=== PATIENT | female | born 1975 | race African-American/Black ===

== ENCOUNTER 2018-08-27 10:18 | Inpatient (IN) | payer OTHER ==
[~2018-08-27] VITALS: Ht 167.6 cm; Wt 103.0 kg
[~2018-08-27 10:18] MED LIST: ADVIL MIGRAI200 M1 PO; BIAXIN500 MG OR; LORTAB 10-325 M1 TAB PO; LORTAB 5 OR; LOSARTAN POT25 MG PO; MEDDOSEPAK OR; NAPROSYN500 MG OR; NAPROSYN500 MG PO; PENICILLN VK500 MG OR; ROBITUSSIN AC OR; ULTRAM50 MG OR; ZITHROMAX250 MG PO; ZYRTEC10 M1; ZYRTEC10 MG PO
--- NOTE | 2018-08-27 10:37 | NUR ---
PT TO ROOM FOR EXAM
[2018-08-27 10:57] LABS: HEMATOCRIT 41.5 % (37.0-47.0); HEMOGLOBIN 13.1 g/dl (12.0-16.0); IMMATURE GRANULOCYTES 0.5 % (0.0-5.0); MEAN CELL VOLUME 85.4 fL CALC (80.0-100.0); MEAN CORPUSCULAR HGB CONC 31.6 g/L CALC (32.0-36.0); NEUT# 10.15 thou/uL (2.00-7.15); RED BLOOD COUNT 4.86 mill/uL (4.20-5.60); RED CELL DISTRI WIDTH 14.9 % (11.5-15.5)
--- NOTE | 2018-08-27 11:00 | NUR ---
PT MEDICATED WITH TORADOL AND ZOFRAN ORDERED FOR 9/10 EPIGASTRIC PAIN. DENIES VOMITING OR DIARRHEA.
[2018-08-27 11:09] LABS: BILIRUBIN, TOTAL 0.5 mg/dL (0.0-1.4); BUN 17 mg/dL (7-17); BUN/CREATININE RATIO 24 (12-20 (CALC)); CARBON DIOXIDE 26 mmol/l (22-30); CHLORIDE 102 mmol/l (95-108); CREATININE 0.7 mg/dL (0.5-1.0); GFR > 60 ML/MIN (>=60 (CALC)); GFR FOR AFR.AMER. > 60 ML/MIN (>=60 (CALC)); SODIUM 140 mmol/l (137-146)
[2018-08-27 11:10] LABS: ALBUMIN 4.9 g/dL (3.2-5.0); ALKALINE PHOSPHATASE 132 u/l (38-126); ANION GAP 17 (6-22 (CALC)); POTASSIUM 4.5 mmol/l (3.5-5.1); SGOT/AST 26 u/l (14-36); TOTAL PROTEIN 7.8 g/dL (6.3-8.2)
[2018-08-27 11:16] LABS: LIPASE 11054 u/l (23-300)
--- NOTE | 2018-08-27 12:00 | NUR ---
PT C/O PAIN RETURNING TO EPIGASTRIC AREA, 01/25. MD AWARE AND NEW ORDERS RECEIVED
--- NOTE | 2018-08-27 13:00 | NUR ---
PT RESTING IN NO DISTRESS. ROUSES EASILY. CONTINUOUS IV FLUIDS.VSS
[2018-08-27 14:10] LABS: URINE BILIRUBIN - DIPSTICK NEGATIVE (NEGATIVE); URINE BLOOD DIPSTICK TRACE-INTACT (NEGATIVE); URINE COLOR YELLOW; URINE GLUCOSE - DIPSTICK NEGATIVE (NEGATIVE); URINE KETONE NEGATIVE (NEGATIVE); URINE LEUK ESTERASE NEGATIVE (NEGATIVE); URINE NITRITE - DIPSTICK NEGATIVE (Negative); URINE PROTEIN - DIPSTICK NEGATIVE (NEG-TRACE); URINE SPECIFIC GRAVITY 1.015; URINE UROBILINOGEN - DIPSTICK 0.2 E.U./dL (0.2)
--- NOTE | 2018-08-27 14:35 | NUR ---
PT RESTING COMFORTABLY IN NO DISTRESS. VSS. TOLERATING IV FLUID BOLUS WITHOUT DIFFICULTY.STATES PAIN IS 1/10 AT THIS TIME.
--- NOTE | 2018-08-27 15:45 | NUR ---
PT TRANSPORTTED TO [place] VIA STRETCHER IN NO DISTRESS.
[2018-08-27 15:55] VITALS: BP 157/80
--- NOTE | 2018-08-27 16:00 | NUR ---
PT ARRIVED TO THE UNIT VIA STRETCHER ACCOMAPNIED BY STAFF. IV SITE IS FREE FROM REDNESS OR EDMEA.
--- NOTE | 2018-08-27 16:45 | NUR ---
ASSESSMENT IS COMPLETD: PT HAS AMBULATED TO THE BATHROOM. IV SITE IS FREE FROM REDNESS OR EDMEA. HR IS REG,PULSES ARE STRONG X4,ABD IS SOFT WITH ACTIVE BS. BREATH SOUNDS ARE CLEAR, BILATERALLY. PT HAS ABD PAIN. AND TENDERNESS. CALL [facility]BOZA WITHIN REACH. INFORMED PT AND FAMILY RE: NPO STATUS. CONTINUE TO OSBERVE AND MONITOR
--- NOTE | 2018-08-27 18:53 | NUR ---
SPOKE WITH DR. FREED RE: BP OF 142/72 HOLDING THE LOPRESSOR (HOLD IF BP IS LESS THAN 140/80).
--- NOTE | 2018-08-27 19:09 | NUR ---
CONSULTATION CALLED IN ON AT [phone]. DR. VALENTIEN NOTIFIED PRODUCTION CONTROL EXPEDITER THAT DR. FREED HAD CALLED IN CONSULTATION FOR THIS PT.
--- NOTE | 2018-08-27 19:38 | NUR ---
[facility] CALLED DR. BERNAL RE: PT. WAS INFORMED BY
[2018-08-27 20:39] VITALS: BP 140/78
[2018-08-28 04:38] VITALS: BP 145/93
[2018-08-28 04:48] LABS: HEMOGLOBIN 11.3 g/dl (12.0-16.0); IMMATURE GRANULOCYTES 0.3 % (0.0-5.0); MEAN CELL VOLUME 84.3 fL CALC (80.0-100.0); MEAN CORPUSCULAR HGB 26.9 pG CALC (26.0-32.0); MEAN CORPUSCULAR HGB CONC 31.9 g/L CALC (32.0-36.0); NEUT# 7.74 thou/uL (2.00-7.15); RED BLOOD COUNT 4.2 mill/uL (4.20-5.60); RED CELL DISTRI WIDTH 14.8 % (11.5-15.5)
[2018-08-28 04:53] LABS: HEMATOCRIT 35.4 % (37.0-47.0)
[2018-08-28 05:04] LABS: ALKALINE PHOSPHATASE 106 u/l (38-126); AMYLASE 398 u/l (30-110); ANION GAP 11 (6-22 (CALC)); BILIRUBIN, TOTAL 0.4 mg/dL (0.0-1.4); BUN 11 mg/dL (7-17); BUN/CREATININE RATIO 17 (12-20 (CALC)); CARBON DIOXIDE 25 mmol/l (22-30); CHLORIDE 105 mmol/l (95-108); CREATININE 0.7 mg/dL (0.5-1.0); GFR > 60 ML/MIN (>=60 (CALC)); GFR FOR AFR.AMER. > 60 ML/MIN (>=60 (CALC)); MAGNESIUM 1.6 mg/dL (1.6-2.3); POTASSIUM 4.1 mmol/l (3.5-5.1); SGOT/AST 18 u/l (14-36); SODIUM 138 mmol/l (137-146)
[2018-08-28 05:10] LABS: ALBUMIN 3.5 g/dL (3.2-5.0)
[2018-08-28 05:30] LABS: LIPASE 3169 u/l (23-300)
--- NOTE | 2018-08-28 07:00 | NUR ---
SHIFT CHANGE REPORT, PT AWAKE ALERT AND ORIENTED RESTING IN BED, DENIED PAIN, IVF INFUSING, REQUEST TO HAVE SHOWER AND PREPARED FOR IT, ALL NEEDS ADDRESSED, CALL [facility]ZA IN REACH.
[2018-08-28 08:58] VITALS: BP 139/82
[2018-08-28 12:00] VITALS: BP 130/73
--- NOTE | 2018-08-28 13:56 | NUR ---
DR VALENTINE ROUNDED, WROTE ORDERS, PLAN FOR MRCP THEN [facility] AND FOLLOW UP FROM THERE, PT STATES UNDERSTANDING.
[2018-08-28 15:39] VITALS: BP 150/95
--- NOTE | 2018-08-28 16:00 | NUR ---
INQUIRED ABOUT TIME OF PROCEDURE, RADIOLOGY CONTACTED AND INFORMED TEST WILL BE DONE IN AM, PT INFORMED.
[2018-08-28 19:32] VITALS: BP 141/95
--- NOTE | 2018-08-28 20:59 | NUR ---
Patient resting in bed. Family at bedside. No S&S of distress. Breath sounds clear. Abdomen soft with active bowel sounds in all 4 quadrants. Patient has no current pain or tenderness in abdomen. Patient NPO. MRCP scheduled for 08/29/18. Patient NPO. LR at 100cc/hr. Patient tolerating well. Will continue to monitor patient progress.
--- NOTE | 2018-08-29 00:32 | NUR ---
Patient resting in bed. No S&S of distress. Family at bed side. IV rocephin given. Patient tolerated fine. Will continue to monitor patient progress.
[2018-08-29 04:40] VITALS: BP 133/81
--- NOTE | 2018-08-29 04:41 | NUR ---
Patient resting in bed. No complaints of pain. Patient NPO for scheduled MRCP. No s&S of distress. will continue to monitor patient progress.
[2018-08-29 07:19] LABS: HEMATOCRIT 30.9 % (37.0-47.0); IMMATURE GRANULOCYTES 0.3 % (0.0-5.0); MEAN CELL VOLUME 84.2 fL CALC (80.0-100.0); MEAN CORPUSCULAR HGB 27.2 pG CALC (26.0-32.0); MEAN CORPUSCULAR HGB CONC 32.4 g/L CALC (32.0-36.0); NEUT# 5.95 thou/uL (2.00-7.15); RED BLOOD COUNT 3.67 mill/uL (4.20-5.60); RED CELL DISTRI WIDTH 14.6 % (11.5-15.5)
--- NOTE | 2018-08-29 07:20 | NUR ---
SHIFT CHANGE REPORT, PT ASLEEP BUT ORIENTED AND RESPONDS TO VERBAL STIMULI, IVF INFUSING, ALL NEEDS MET, FAMILY IN ROOM, CALL [facility]BOZA IN REACH.
[2018-08-29 07:32] LABS: ALBUMIN 3.3 g/dL (3.2-5.0); ALKALINE PHOSPHATASE 94 u/l (38-126); ANION GAP 12 (6-22 (CALC)); BILIRUBIN, TOTAL 0.8 mg/dL (0.0-1.4); BUN 10 mg/dL (7-17); BUN/CREATININE RATIO 13 (12-20 (CALC)); CARBON DIOXIDE 25 mmol/l (22-30); CHLORIDE 105 mmol/l (95-108); CREATININE 0.7 mg/dL (0.5-1.0); GFR > 60 ML/MIN (>=60 (CALC)); GFR FOR AFR.AMER. > 60 ML/MIN (>=60 (CALC)); MAGNESIUM 1.6 mg/dL (1.6-2.3); POTASSIUM 3.9 mmol/l (3.5-5.1); SGOT/AST 28 u/l (14-36); SODIUM 138 mmol/l (137-146); TOTAL PROTEIN 5.6 g/dL (6.3-8.2)
--- NOTE | 2018-08-29 08:05 | NUR ---
[facility] HERE AT THIS TIME RECEIVING PT TO TRANSPORT TO [facility] VIA W/C.
--- NOTE | 2018-08-29 08:52 | NUR ---
RETURNED TO UNIT FROM PROCEDURE
--- NOTE | 2018-08-29 11:35 | NUR ---
AMBULATING IN ROOM TOLERATED LIQUID DIET OK, WILL CONTINUE TO MONITOR.
--- NOTE | 2018-08-29 12:00 | NUR ---
DR VALENTINE ROUNDED AGAIN AND DISCUSSED RESULTS OF MRCP AND RECOMMENDATIONS WITH PT, PT HAS NOT DECIDED WHAT STEPS SHE WILL TAKE NEXT BUT WILL THINK ABOUT IT.
[2018-08-29 12:04] VITALS: BP 146/94
[2018-08-29 12:22] VITALS: BP 146/94
--- NOTE | 2018-08-29 16:09 | NUR ---
Discharge instructions given. Patient verbalizes understanding of same. Discharged in good condition via Ambulatory to Home with family. All belongings sent with pt.
== END 2018-08-29 16:08 | disposition home or self-care (01) | DRG 440 ==
LOC: ED 10:18 → ED-I 13:41 → ED 13:52 → MS2 13:53
PROVIDERS: Family Medicine; ADMIT Internal Medicine Nephrology; ATTEND Internal Medicine Nephrology
DX: K85.10 Biliary acute pancreatitis without necrosis or infection (principal); K80.20 Calculus of gallbladder without cholecystitis without obstruction; I10 Essential (primary) hypertension; K21.9 Gastro-esophageal reflux disease without esophagitis; F10.10 Alcohol abuse, uncomplicated; E66.9 Obesity, unspecified; Z85.3 Personal history of malignant neoplasm of breast; Z92.21 Personal history of antineoplastic chemotherapy; Z92.3 Personal history of irradiation; Z90.12 Acquired absence of left breast and nipple; Z68.36 Body mass index [BMI] 36.0-36.9, adult
CPT/HCPCS: Q9967